=== PATIENT | male | born 2005 | race Caucasian/White ===

== ENCOUNTER 2025-05-06 20:11 | Emergency (ER) | payer OTHER ==
[~2025-05-06] VITALS: Ht 170.2 cm; Wt 71.0 kg
[2025-05-06 20:28] VITALS: O2SAT 98
[2025-05-06 20:32] VITALS: BP 112/74; PULSE 68; RESP 16; TEMP 36.8; O2SAT 99
== END 2025-05-07 00:10 | disposition home or self-care (01) ==
LOC: ER 20:11
DX: H57.11 Ocular pain, right eye (principal)
CPT/HCPCS: 99281